=== PATIENT | male | born 1995 | race Caucasian/White ===

== ENCOUNTER 2022-02-05 12:02 | Emergency (ER) | payer SELFPAY ==
[~2022-02-05] VITALS: Ht 167.6 cm; Wt 86.2 kg
[2022-02-05 12:05] VITALS: BP_SYST 123
--- NOTE | 2022-02-05 12:10 | NUR ---
BROUGHT BACK TO BED #2 AND TRIAGED. REPORT GIVEN TO SALO
--- NOTE | 2022-02-05 13:05 | NUR ---
DR JORGE AT BEDSIDE FOR EVALUATION
[2022-02-05] MEDS ORDERED: IBUPROFEN 600 MG TABLET PO ONE (14:00)
[2022-02-05] MEDS ORDERED: ERYTHROMYCIN 0.5% EYE OINT 3.5 GM OP ONE (14:00)
[2022-02-05] MEDS ORDERED: ERYEYE LEFT EYE (14:38)
[2022-02-05] MEDS ORDERED: IBUP-1969 PO (14:38)
--- NOTE | 2022-02-05 14:42 | NUR ---
Patient seenby RN and MD. Patient generally feeling ok except for eye. Itchy over several days. Patient given medicines and awaiting MD re evaluation.
[2022-02-05 14:50] VITALS: BP_SYST 118
== END 2022-02-05 14:42 | disposition home or self-care (01) ==
LOC: SED 12:02
DX: S05.01XA Injury of conjunctiva and corneal abrasion without foreign body, right eye, initial encounter (principal); H10.31 Unspecified acute conjunctivitis, right eye; Z79.899 Other long term (current) drug therapy; W45.8XXA Other foreign body or object entering through skin, initial encounter; Y93.89 Activity, other specified; Y92.89 Other specified places as the place of occurrence of the external cause; Y99.8 Other external cause status
CPT/HCPCS: 99283